=== PATIENT | female | born 1985 | race Hispanic/Latino ===

== ENCOUNTER 2019-03-17 13:58 | Inpatient (IN) | payer OTHER ==
[~2019-03-17 13:58] MED LIST: Bupivacaine 0.25% HCL 30 ML VIAL ONE
[2019-03-17 14:42] VITALS: BMI 24.6
[2019-03-17] MEDS ORDERED: Docusate 100 MG CAP PO PRN (14:46)
[2019-03-17] MEDS ORDERED: hydrALAZINE 20 MG/ML VIAL SLOW IVP PRN (14:46)
[2019-03-17] MEDS ORDERED: Ondansetron PF 4 MG/2 ML Vial IVP PRN ×2 (14:46→19:36)
[2019-03-17] MEDS ORDERED: Acetaminophen 500 MG TAB PO PRN (14:46)
[2019-03-17] MEDS ORDERED: Ibuprofen 800 MG TAB PO PRN (14:46)
[2019-03-17] MEDS ORDERED: Butorphanol Tartrate 1 MG/ML VIAL SLOW IVP PRN (14:46)
[2019-03-17] MEDS ORDERED: Lidocaine 1% (PF) 30 ML VIAL SC PRN (14:46)
[2019-03-17] MEDS ORDERED: NS / Oxytocin 40 units/1000ml 1,000 ML IV PRN (14:46)
[2019-03-17] MEDS ORDERED: Promethazine HCl 25 MG/ML VIAL IM PRN ×2 (14:46→19:36)
[2019-03-17] MEDS ORDERED: NS w/ Oxytocin 10 units 500 ML IV SCH (15:00)
--- NOTE | 2019-03-17 15:01 | PDOC.FPROB ---
FMR OB H&P: HPI - History of Present Illness Chief Complaint: LOF @ 0700 Indentification: 33 yo @ 39.1 History of Present Illness: 33 yo @ 39.1 by 12 week sono presents for loss of fluid @ 0700. She denies contractions, vaginal bleeding. Reports pos movement. Primary Care Physician: YUE Stuart FMR OB H&P: Current - Care : 4 Para: 3 Gestational age: 39.1 Due date: 03/23/2019 Dating Criteria: 12 week sono - OB Labs Blood type: A RH: positive Antibody Screen: negative HIV: negative RPR: negative HepBsAg: negative Rubella: immune Quad screen: unknown Urine drug screen: not done Gonorrhea: negative Chlamydia: negative Pap Smear: NILM 1 hour gtt: 117 GBS: negative H&H: 10.4/29.9 Platelets: 228 - Anatomy Survey Anatomy survey: Normal male ant placenta FMR OB H&P: History - Past Medical History PMH: None - OB History OB History: Term vaginal @ 40 weeks gestation 3 prior pregnancies - MENTAL RETARDATION AIDE History MENTAL RETARDATION AIDE History: NILM - Surgical History Sx History: None - Social History Social History: Denies alcohol tobacco and drug use - Family History Family History: NA FMR OB H&P: Medications - Current Home Medications: Medication Instructions Recorded Confirmed Type Vitamin 1 tablet PO DAILY 04/13/16 04/13/16 History Allergies/Adverse Reactions: Allergies Allergy/AdvReac Type Severity Reaction Status Date / Time No Known Allergies Allergy Unverified 04/13/16 21:37 FMR OB H&P: ROS - Review of Systems General: denies: fever/chills, night sweats Eyes: denies: eye pain, vision changes ENT: denies: nasal congestion, rhinorrhea Cardiovascular: denies: chest pain Respiratory: denies: cough, shortness of breath Gastrointestinal: denies: abdominal pain, cramping, nausea, vomiting, diarrhea, constipation Genitourinary (Female): denies: dysuria, polyuria, vaginal discharge, vaginal pain, contractions Musculoskeletal: denies: pain, stiffness Neurologic: denies: numbness, syncope FMR OB H&P: Vital Signs - Maternal Vital signs: Vital Signs - First Documented Temp Pulse Resp BP 98.1 F 61 16 104/65 03/17/19 14:18 03/17/19 14:18 03/17/19 14:18 03/17/19 14:18 - Heart Tones Baseline: 150 Variability: moderate Acceleration: present Deceleration: absent Category: category 1 [place] contractions every: 3 FMR OB H&P: Physical Exam - Physical Exam General: NAD, awake, alert and oriented HEENT: normocephalic and atraumatic, PERRLA, EOMI, MMM, no scleral icterus Neck: supple, FROM, trachea midline Chest: non-tender to palpation Heart: RRR, normal S1/S2, no murmurs/rubs/gallops General: CTAB, no respiratory distress, good air movement, no wheezing Abdomen: soft, gravid, non-tender Musculoskeletal: pulses present, FROM in all four extremities Neurological: no focal deficit Skin: no rash - Pelvic Exam Vulva: normal hair distribution Cervix: no masses SVE: /-2 Membranes: Grossly ruptured with pooling of fluid, clear Presentation: vertex Estimated Weight: 7 lbs FMR OB H&P: A/P - Problem List (1) SROM (spontaneous rupture of membranes) Current Visit: Yes Status: Acute Code(s): [id number] - Disposition: 1) SROM - admit to l&d and pitocin as needed for augmentation - GBS neg - cervical check q4hr - pt wants epidural, anesthesia consulted Discussion: Date/Time: 03/17/19 1500 This H&P was discussed with [] and [] who agree with the above documentation and plan.
[2019-03-17 15:58] LABS: Hemoglobin 10.4 g/dL (12.0-16.0); Mean Corpuscular HGB CONC 34.9 g/dL (32.0-36.0); Mean Corpuscular Hemoglobin 28.8 pg (27.0-31.0); Mean Corpuscular Volume 82.7 fL (78.0-98.0); Mean Platelet Volume 8.1 fL (7.4-10.4); Platelet Count 228 thou/uL (130-400); RBC Distribution Width 11.9 % (11.5-14.5); Red Blood Cell (RBC) Count 3.62 mill/uL (4.20-5.40); White Blood Cell (WBC) Count 6.8 thou/uL (4.8-10.8)
[2019-03-17] MEDS: Lactated Ringer's 1,000 ML IV SCH (16:00)
[2019-03-17 16:40] LABS: HBSAg Index 0.21 S/CO (0-0.99); Hep B Surf Ag Non-Reactive S/CO (NonReactive)
[2019-03-17 16:42] LABS: Syphilis Antibody Nonreactive (Nonreactive); Syphilis Antibody Index 0.02 S/CO (<1.00 Non-Reactive)
--- NOTE | 2019-03-17 18:14 | PDOC.LDPN ---
Labor & Delivery Progress Note - Subjective Subjective: comfortable, painful contractions, no concerns - Objective Vital signs reviewed and normal: yes General: NAD, breathing through contractions Uterine fundus: non tender SVE: 4/75/0 Dilation: 4 Effacement: 75% Station: -2 FHT: category 1, variability present [place] contractions every: 3 IUPC placed: yes Resuscitative measures: maternal IV fluids, maternal position change - Assessment (1) SROM (spontaneous rupture of membranes) Code(s): [id number] - Current Visit: Yes Status: Acute Plan: continue plan of care, pitocin for augmentation -: 1) SROM - srom @ 0700 - iupc placed and pitocin started for augmentation - GBS neg - cont plan of care - cervical checks q4h + prn
[2019-03-17] MEDS ORDERED: Fentanyl 4 mcg/Bup 0.1% Cadd 100 ML ONE (18:39)
[2019-03-17] MEDS ORDERED: Naloxone HCl 0.4 mg/ml Vial IVP PRN ×2 (19:36)
[2019-03-17] MEDS ORDERED: ePHEDrine/0.9% NaCl/PF SYRINGE 50 mg/10 ml SLOW IVP PRN (19:36)
[2019-03-17] MEDS ORDERED: Acetaminophen 325 MG TAB PO PRN (19:36)
[2019-03-17] MEDS ORDERED: Lactated Ringer's 500 ML IV PRN (19:36)
[2019-03-17] MEDS ORDERED: diphenhydrAMINE 50 MG/ML VIAL IVP PRN (19:36)
[2019-03-17] MEDS ORDERED: Communication Order-Pharmacy FS SCH (19:45)
[2019-03-17] MEDS ORDERED: Fentanyl 4 mcg/Bupivacaine 0.1% Cassette 100 ML EPIDURAL SCH (19:45)
--- NOTE | 2019-03-17 20:33 | PDOC.LDPN ---
Labor & Delivery Progress Note - Subjective Subjective: comfortable, no concerns - Objective Vital signs reviewed and normal: yes General: NAD, resting, breathing through contractions Uterine fundus: non tender SVE: nurse Rosemarie Dilation: 4 Effacement: 75% Station: -2 FHT: category 1 (Mod variability, accels present ), variability present [place] contractions every: 3 min - Assessment (1) SROM (spontaneous rupture of membranes) Code(s): [id number] - Current Visit: Yes Status: Acute Plan: continue plan of care, pitocin for augmentation -: 1) SROM - srom @ 0700 - iupc placed and pitocin started for augmentation - GBS neg - cont plan of care 2) IUP in Latent Labor - cervical checks q4h + prn - @ 2011 By Tiffany /-2
--- NOTE | 2019-03-17 23:17 | PDOC.OPDEL ---
OB Operative/Delivery Note Delivery Dr/Surgeon: Narciso Castillo Brading Pre-Delivery Diagnosis: ruptured membrane Procedure/Post Delivery Dx: spontaneous vaginal delivery Weeks gestation: 39 (39+1) Anesthesia: epidural - Additional Findings/Plan Placenta delivered: spontaneous Repaired Obstetrical Laceration: 1st degree Estimated blood loss: 200mL qbl Compilations/Other Findings: Delivering Physician Narciso Castillo Procedure: Spontaneous Vaginal Delivery Anesthesia: epidural QBL: 200 ml Pre-op Diagnosis: 1. Term ROM 2. Anemia of Post-op Diagnosis: 1. Term intrauterine , delivered 2. same as above Indications: A 33y/o female presents with SROM. Delivery Note: This is 33yo F ->4004 @ 39.1wks who delivered a viable M at 2228. Following an uneventful antepartum course, a vigorous Male was delivered over an intact perineum in the occipitoanterior position. Anterior Shoulder and then remainder of the body delivered. No nuchal cord. True cord knot. The head was held down and mouth and nares were bulb suctioned. Cord clamped and cut and cord blood collected. Placenta delivered intact with a 3 vessel cord noted. Fundal massage was performed and the fundus was firm. The cervix and vagina were inspected and first degree Laceration noted and repaired with 3-0vicryl in the usual fashion with good approximation and hemostasis. Infant went to nursery in good condition for routine care. Apgars were 8/9 at 1 & 5 minutes, respectively. Patient tolerated delivery well and went to after routine recovery/care. Post delivery plan: routine recovery Addendum - Attending - Attending Attestation Date/Time: 03/18/19 0656 I was present for the delivery of a viable male infant and intact placenta. -Primitivo
[2019-03-17] MEDS ORDERED: Bisacodyl 10 MG SUPP PR PRN (23:56)
[2019-03-17] MEDS ORDERED: Lanolin Ointment 7 GM TUBE TOP PRN (23:56)
[2019-03-17] MEDS ORDERED: Milk Of Magnesia 30 ML UDCUP PO PRN (23:56)
[2019-03-17] MEDS ORDERED: HYDROcodone/Acetaminophen 5/325 mg Tablet PO PRN (23:56)
[2019-03-18] MEDS ORDERED: NS / Oxytocin 40 units/1000ml 1,000 ML ONE (01:02)
[2019-03-18] MEDS ORDERED: NS / Oxytocin 40 units/1000ml 1,000 ML IV PRN (01:45)
[2019-03-18] MEDS: Lactated Ringer's 1,000 ML IV SCH (02:38)
[2019-03-18 06:25] LABS: #Monocytes 0.8 thou/uL (0.11-0.59); #Neutrophils 7.2 thou/uL (1.40-6.50); %Basophils 0.1 % (0.0-1.0); %Eosinophils 0.3 % (0.0-10.0); %Lymphocytes 20.2 % (21.0-51.0); %Monocytes 8.1 % (0.0-10.0); %Neutrophils 71.4 % (42.0-75.0); Hemoglobin 9.5 g/dL (12.0-16.0); Mean Corpuscular HGB CONC 33.6 g/dL (32.0-36.0); Mean Corpuscular Hemoglobin 28.4 pg (27.0-31.0); Mean Corpuscular Volume 84.7 fL (78.0-98.0); Mean Platelet Volume 7.9 fL (7.4-10.4); Platelet Count 172 thou/uL (130-400); Red Blood Cell (RBC) Count 3.34 mill/uL (4.20-5.40)
--- NOTE | 2019-03-18 08:44 | PDOC.PP ---
Post Progress Note Post Day #: 1 Subjective: 33 yo ->4 delivered via @ 2228 03/17/19 no complications. Pt doing well and pain well controlled. PO intake tolerated: yes Flatus: yes Ambulation: yes Vital Signs (12 hours) Temp Pulse Resp BP Pulse Ox 03/18/19 07:44 97.8 F 45 L 13 99/60 98 03/18/19 04:30 59 L 16 99/59 L 03/18/19 02:10 98.3 F 65 16 120/56 L Weight Weight 57.153 kg - Physical Examination General: NAD Cardiovascular: no m/r/g, RRR Respiratory: clear to auscultation bilaterally, non-labored breathing Abdominal: + bowel sounds, no distention, appropriately TTP Extremities: negative homans (B) Skin: no rash Neurological: no gross focal deficits Psychiatric: normal affect Result Diagrams: 03/18/19 06:17 Additional Labs: Post Labs Blood Type A POSITIVE 03/17/19 16:57 Hep Bs Antigen Non-Reactive S/CO (NonReactive) 03/17/19 15:38 (1) SROM (spontaneous rupture of membranes) Code(s): [id number] - Status: Acute (2) Term of male Code(s): Z37.0 - SINGLE LIVE Status: Acute - Assessment/Plan 1) TIUP, delivered - pain well controlled, fundus firm below umbilicus - ambulating tolerating po and doing well - given 2227 delivery, will plan for likely discharge to home tomorrow am Addendum - Attending - Attending Attestation Date/Time: 03/18/19 1373 I personally evaluated the patient and discussed the management with Dr. Stuart. I agree with the Assessment and Plan documented above.
[2019-03-18] MEDS ORDERED: Adacel (T-DAP) 0.5 ML SYRINGE IM ONE (09:00)
[2019-03-18] MEDS: Prenatal Vitamin 1 TAB PO SCH (09:34)
[2019-03-18] MEDS: Docusate Calcium (SURFAK) 240 MG CAP PO SCH ×2 (09:34→22:10)
[2019-03-18] MEDS: Ferrous Sulfate 325 MG TAB PO SCH ×2 (09:34→18:16)
[2019-03-18] MEDS: Ibuprofen 800 MG TAB PO PRN ×2 (14:58→22:10)
--- NOTE | 2019-03-19 00:33 | PDOC.PP ---
Post Progress Note Post Day #: 2 Subjective: 33 yo G4 now P4 pp day 2. Pt doing well no complaints and all pp milestones met. PO intake tolerated: yes Flatus: yes Ambulation: yes Vital Signs (12 hours) Temp Pulse Resp BP 03/19/19 00:00 98.8 F 57 L 14 108/55 L 03/18/19 20:05 98.7 F 56 L 14 107/58 L 03/18/19 15:21 97.6 F 59 L 13 99/62 Weight Weight 57.153 kg - Physical Examination General: NAD Cardiovascular: no m/r/g, RRR Respiratory: clear to auscultation bilaterally, non-labored breathing Abdominal: no distention, appropriately TTP Extremities: negative homans (B) Neurological: no gross focal deficits Psychiatric: normal affect Result Diagrams: 03/18/19 06:17 Additional Labs: Post Labs Blood Type A POSITIVE 03/17/19 16:57 Hep Bs Antigen Non-Reactive S/CO (NonReactive) 03/17/19 15:38 (1) SROM (spontaneous rupture of membranes) Code(s): [id number] - Status: Acute (2) Term of male Code(s): Z37.0 - SINGLE LIVE Status: Acute - Assessment/Plan 1) Term delivery - pp day 2 - all pp milestones met - plan for DC to home today - f/u 2 weeks PNC Addendum - Attending - Attending Attestation Date/Time: 03/19/19 3753 I personally evaluated the patient and discussed the management with Dr. Stuart I agree with the Assessment and Plan above.
[2019-03-19] MEDS: Ibuprofen 800 MG TAB PO PRN (05:52)
[2019-03-19] MEDS: Ferrous Sulfate 325 MG TAB PO SCH (08:40)
[2019-03-19] MEDS: Docusate Calcium (SURFAK) 240 MG CAP PO SCH (08:40)
[2019-03-19] MEDS: Prenatal Vitamin 1 TAB PO SCH (08:40)
[2019-03-19 13:11] VITALS: BP 96/50; TEMP 98.3
== END 2019-03-19 14:03 | disposition home or self-care (01) | DRG 807 ==
LOC: L&D/OP 13:58 → L&D 15:22 → 3SE 03-18 03:19
PROVIDERS: ADMIT Obstetrics & Gynecology; ATTEND Obstetrics & Gynecology
PROC: 10E0XZZ Delivery of Products of Conception, External Approach (ICD-10-PCS; principal; 2019-03-17)
PROC: 0HQ9XZZ Repair Perineum Skin, External Approach (ICD-10-PCS; 2019-03-17)
PROC: 3E033VJ Introduction of Other Hormone into Peripheral Vein, Percutaneous Approach (ICD-10-PCS; 2019-03-17)
DX: O99.02 Anemia complicating childbirth (principal); Z37.0 Single live birth; D64.9 Anemia, unspecified; O70.0 First degree perineal laceration during delivery; Z3A.39 39 weeks gestation of pregnancy
CPT/HCPCS: 36415; 51702; 85025; 85027; 86780; 86850; 86900; 86901; 87340; 99285; J2590; S0020

== ENCOUNTER 2023-09-17 22:54 | Emergency (ER) | payer SELFPAY | END 2023-09-17 23:58 | disposition home or self-care (01) | LOC: ERS 22:54 | DX: M25.512 Pain in left shoulder (principal); F17.200 Nicotine dependence, unspecified, uncomplicated ==

== ENCOUNTER 2024-05-02 22:55 | Emergency (ER) | payer SELFPAY ==
[2024-05-02] MEDS ORDERED: Mag-Al 1200 mg/1200 mg/30 ML UDCUP ONE (23:22)
[2024-05-02] MEDS ORDERED: Lidocaine Viscous Sol 2% 15 ml UD Cup ONE (23:23)
[2024-05-02] MEDS ORDERED: Famotidine 20 MG TAB ONE (23:24)
[2024-05-02 23:56] LABS: #Basophils Less than 0.03 10x3/uL (0.0-0.2); %Basophils 0.2 % (0.0-1.0); %Eosinophils 2.3 % (0.0-10.0); %Lymphocytes 46.1 % (21.0-51.0); %Monocytes 5.8 % (0.0-10.0); %Neutrophils 45.4 % (42.0-75.0); Hematocrit 36.5 % (36.0-47.0); Hemoglobin 11.9 g/dL (12.0-16.0); Mean Corpuscular HGB CONC 32.6 g/dL (32.0-36.0); Mean Corpuscular Hemoglobin 29.1 pg (27.0-31.0); Mean Corpuscular Volume 89.2 fL (78.0-98.0); Mean Platelet Volume 9.8 fL (7.4-10.4); Platelet Count 267 10x3/uL (130-400); RBC Distribution Width 12.3 % (11.5-14.5); Red Blood Cell (RBC) Count 4.09 mill/uL (4.20-5.40)
[2024-05-03 00:21] LABS: ALT (SGPT) 15 U/L (8-55); AST (SGOT) 12 U/L (5-34); Albumin 3.6 g/dL (3.5-5.0); Alkaline Phosphatase 58 U/L (40-110); Anion Gap 12 mmol/L (10-20); BUN (Urea Nitrogen) 7 mg/dL (7.0-18.7); Bilirubin, Total 0.2 mg/dL (0.2-1.2); Calc. Creatinine Clearance 0 mL/min (70-130); Calcium 9.3 mg/dL (7.8-10.44); Carbon Dioxide 21 mmol/L (22-29); Chloride 112 mmol/L (98-107); Estimated GFR 102; Globulin 2.8 g/dL (2.4-3.5); Glucose 95 mg/dL (70-105); Lipase 49 U/L (8-78); Potassium 3.6 mmol/L (3.5-5.1); Protein, Total 6.4 g/dL (6.0-8.3); Sodium 141 mmol/L (136-145)
[2024-05-03 00:24] LABS: Troponin I Less than 0.010 ng/mL (< 0.028)
[2024-05-03 00:29] LABS: BHCG - Serum Negative (NEGATIVE); Pregs Control Background? CLEAR/WHITE (CLR/WHITE); Pregs Control Bar Appear? YES (CONTROL BAR)
== END 2024-05-03 01:14 | disposition home or self-care (01) ==
LOC: ERS 22:55
DX: K29.01 Acute gastritis with bleeding (principal); R00.2 Palpitations; F17.200 Nicotine dependence, unspecified, uncomplicated; Z55.0 Illiteracy and low-level literacy
CPT/HCPCS: 36415; 80053; 83690; 84484; 84703; 85025; 93005; 99285

== ENCOUNTER 2024-05-12 16:40 | Emergency (ER) | payer SELFPAY ==
[2024-05-12 17:21] LABS: Bacteria/HPF None Seen HPF (None Seen); Bilirubin Negative (Negative); Blood, Urine Negative (Negative); CAUTI Indications for Culture Dysuria,urgency,freq; Clarity Clear (Clear); Glucose, Urine (Dipstick) Normal (Negative); Ketone, Urine Negative (Negative); Leukocyte Negative Leu/uL (Negative); Nitrite Negative (Negative); Protein, Urine (Dipstick) Negative (Neg-Trace); RBC/HPF 0-3 HPF (0-3); Specific Gravity, Urine 1.002 (1.002-1.036); Squamous Epithelial 0-3 HPF (0-3); Urobilinogen Normal mg/dL (Less than 2); WBC/HPF 0-3 HPF (0-3)
[2024-05-12 17:24] LABS: Pregnancy Test - Urine (BHCG) Negative (Negative); Pregu Control Background? CLEAR/WHITE (CLR/WHITE); Pregu Control Bar Appear? YES (CONTROL BAR); Specific Gravity 1.002 (1.002-1.036)
[2024-05-12 17:25] LABS: Urine Culture Reflex No No
[2024-05-12 20:02] LABS: #Basophils Less than 0.03 10x3/uL (0.0-0.2); %Basophils 0.2 % (0.0-1.0); %Eosinophils 1.3 % (0.0-10.0); %Lymphocytes 34.9 % (21.0-51.0); %Monocytes 6.7 % (0.0-10.0); %Neutrophils 56.4 % (42.0-75.0); Hematocrit 37.5 % (36.0-47.0); Hemoglobin 12.4 g/dL (12.0-16.0); Mean Corpuscular HGB CONC 33.1 g/dL (32.0-36.0); Mean Corpuscular Hemoglobin 29.4 pg (27.0-31.0); Mean Corpuscular Volume 88.9 fL (78.0-98.0); Mean Platelet Volume 9.9 fL (7.4-10.4); Platelet Count 307 10x3/uL (130-400); RBC Distribution Width 12.5 % (11.5-14.5); Red Blood Cell (RBC) Count 4.22 mill/uL (4.20-5.40)
[2024-05-12 20:19] LABS: ALT (SGPT) 22 U/L (8-55); AST (SGOT) 18 U/L (5-34); Albumin 3.8 g/dL (3.5-5.0); Alkaline Phosphatase 70 U/L (40-110); Anion Gap 15 mmol/L (10-20); BUN (Urea Nitrogen) 5 mg/dL (7.0-18.7); Bilirubin, Total 0.3 mg/dL (0.2-1.2); Calc. Creatinine Clearance 0 mL/min (70-130); Calcium 9.4 mg/dL (7.8-10.44); Carbon Dioxide 22 mmol/L (22-29); Chloride 108 mmol/L (98-107); Estimated GFR 104; Globulin 2.8 g/dL (2.4-3.5); Glucose 84 mg/dL (70-105); Protein, Total 6.6 g/dL (6.0-8.3); Sodium 141 mmol/L (136-145)
[2024-05-12 20:24] LABS: Troponin I Less than 0.010 ng/mL (< 0.028)
== END 2024-05-12 21:41 | disposition home or self-care (01) ==
LOC: ERS 16:40
DX: R07.9 Chest pain, unspecified (principal); R06.02 Shortness of breath; R42 Dizziness and giddiness; F17.200 Nicotine dependence, unspecified, uncomplicated
CPT/HCPCS: 36415; 71045; 80053; 81001; 81025; 84484; 85025; 93005

== ENCOUNTER 2025-06-28 23:27 | Emergency (ER) | payer SELFPAY | END 2025-06-29 04:10 | disposition home or self-care (01) | LOC: ERS 23:27 | DX: M77.11 Lateral epicondylitis, right elbow (principal); F17.200 Nicotine dependence, unspecified, uncomplicated; W22.8XXA Striking against or struck by other objects, initial encounter | CPT/HCPCS: 99283 ==